=== PATIENT | female | born 1930 | race Caucasian/White ===

== ENCOUNTER 2016-07-18 16:43 | Emergency (ER) | payer MEDICARE ==
[2016-07-18 17:19] VITALS: PULSE 77; TEMP 98.5
[2016-07-18] MEDS ORDERED: MORPHINE SULFATE 4 MG/ML SYRINGE IV STA (17:40)
--- NOTE | 2016-07-18 18:05 | ED ---
General Adult HPI - General Chief complaint: Extremity Injury, Lower Stated complaint: HIP PAIN Time Seen by Provider: 07/18/16 17:31 Source: patient, RN notes reviewed, old records reviewed Mode of arrival: EMS Limitations: physical limitation - History of Present Illness Initial comments: Patient 85-year-old female who presents emergency room today by EMS, the chief complaint of increased right hip pain. She does admit that this is been a chronic problem that has been getting worse. She states that she's been seen in the past for this. She believe she's been to orthopedics. 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 States pain is been getting worse. She states she uses both a cane and walker at times. She states when she tries to bear weight she has increased pain. Patient denies any injury or trauma. Denies any pain at rest. Patient denies any recent fever, chills, shortness of breath, chest pain, abdominal pain, nausea or vomiting, numbness or tingling, dysuria or hematuria, constipation or diarrhea, headaches or visual changes, or any other complaints. - Related Data Home Medications Medication Instructions Recorded Confirmed Calcium Carb-Vit D 500Mg-200Un 1 tab PO BID 08/18/13 07/18/16 [Oscal 500+D] Clopidogrel [Plavix] 75 mg PO DAILY 08/18/13 07/18/16 Lansoprazole [Prevacid] 30 mg PO DAILY 08/18/13 07/18/16 Lovastatin [Mevacor] 20 mg PO DAILY 08/18/13 07/18/16 Fenofibrate Nanocrystallized 145 mg PO DAILY 10/19/13 07/18/16 [Fenofibrate] Montelukast [Singulair] 10 mg PO HS 10/19/13 07/18/16 Sertraline [Zoloft] 100 mg PO BID 06/16/14 07/18/16 Ubidecarenone [Co Q-10] 100 mg PO DAILY 07/30/15 07/18/16 Atenolol [Tenormin] 50 mg PO DAILY 01/30/16 07/18/16 amLODIPine [Norvasc] 5 mg PO DAILY 01/30/16 07/18/16 Hydrocodone/Acetaminophen [Vicodin 1 tab PO Q8H PRN 07/18/16 07/18/16 5-300 mg Tablet] Previous Rx's Medication Instructions Recorded Zolpidem [Ambien] 10 mg PO HS PRN #7 tab 02/12/16 Hydrocodone/Acetaminophen [[place] 1 each PO Q6HR PRN #15 tab 07/18/16 5-325] Allergies Allergy/AdvReac Type Severity Reaction Status Date / Time No Known Allergies Allergy Verified 07/18/16 17:19 Review of Systems ROS Statement: Those systems with pertinent positive or pertinent negative responses have been documented in the HPI. ROS Other: All systems not noted in ROS Statement are negative. Past Medical History Past Medical History: Asthma, COPD, CVA/TIA, GERD/Reflux, Hyperlipidemia, Hypertension Additional Past Medical History / Comment(s): stroke, wound rt lower leg History of Any Multi-Drug Resistant Organisms: MRSA Date of last positivie culture/infection: 10 years ago MDRO Source:: Intestinal Past Surgical History: Hysterectomy Additional Past Surgical History / Comment(s): Bladder suspension 20 years ago, BOWEL SURGERY Past Anesthesia/Blood Transfusion Reactions: No Reported Reaction Past Psychological History: No Psychological Hx Reported Smoking Status: Never smoker Past Alcohol Use History: Occasional Past Drug Use History: None Reported - Past Family History Mother Family Medical History: No Reported History Father History Unknown: Yes Family Medical History: Myocardial Infarction ([place]) General Exam - General Exam Comments Initial Comments: General: The patient is awake and alert, in no distress, and does not appear acutely ill. Eye: Pupils are equal, round and reactive to light, extra-ocular movements are intact. No nystagmus. There is normal conjunctiva bilaterally. No signs of icterus. Ears, nose, mouth and throat: There are moist mucous membranes and no oral lesions. Neck: The neck is supple, there is no tenderness or JVD. Cardiovascular: There is a regular rate and rhythm. No murmur, rub or gallop is appreciated. Respiratory: Lungs are clear to auscultation, respirations are non-labored, breath sounds are equal. No wheezes, stridor, rales, or rhonchi. Musculoskeletal: Normal ROM, no tenderness. Strength 5/5. Sensation intact. Pulses equal bilaterally 2+. Neurological: A&O x 3. CN II-XII intact, There are no obvious motor or sensory deficits. Coordination appears grossly intact. Speech is normal. Skin: Skin is warm and dry and no rashes or lesions are noted. Psychiatric: Cooperative, appropriate mood & affect, normal judgment. Limitations: physical limitation Course Vital Signs 07/18/16 17:00 Temperature 98.5 F Pulse Rate 77 Respiratory 18 Rate Blood Pressure 166/86 O2 Sat by Pulse 94 L Oximetry Medical Decision Making - Medical Decision Making 85-year-old female with chronic right hip pain. No injury or trauma. X-rays reviewed and are unremarkable. Results were discussed with patient. Patient and laboratory here in the emergency room feeling better after pain medication. Does have [place] at home that she can use. Advised follow-up with orthopedics for further evaluation of the pain of the right hip. Advised return to emergency room for any other concerns. Disposition Clinical Impression: Right hip pain Disposition: HOME SELF-CARE Condition: Good Instructions: Hip Pain (ED) Additional Instructions: Please follow up with the orthopedic doctor over the next 2 days. Please continue pain medication of [place] at home for her pain. Please return to emergency room if any symptoms increase worsen or fail concerns. Prescriptions: Hydrocodone/Acetaminophen [[place] 5-325] 1 each PO Q6HR PRN #15 tab PRN Reason: Pain Referrals: Babar Barnard MD [Primary Care Provider] - 1-2 days Hasmukh Weber MD [Medical Doctor] - 1-2 days Time of Disposition: 19:04
--- NOTE | 2016-07-18 18:48 | XR ---
EXAMINATION TYPE: XR Hip RT and AP Pelvis DATE OF EXAM: 07/18/2016 6:28 PM COMPARISON: 02/09/2016 HISTORY: Pain TECHNIQUE: 3 views FINDINGS: Pelvic ring is intact. Proximal right femur and hip joint are intact. There is vascular ritchie cification. I see no fracture. Sacroiliac joints are normal. There is a lumbar levoscoliosis. There i s mild hip joint space narrowing. 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 No fracture seen. No change. Bone island noted in the left iliac bone.
--- NOTE | 2016-07-18 18:49 | XR ---
EXAMINATION TYPE: XR lumbar spine 2 or 3V DATE OF EXAM: 07/18/2016 6:31 PM COMPARISON: 02/03/2016 HISTORY: Back pain TECHNIQUE: 3 views. FINDINGS: there is lumbar levorotoscoliosis. There is degenerative disc space narrowing from L2 to S1 with spu rring and variable vacuum disc phenomenon. There is no compression fracture. Abdominal aorta is ather omatous. Sacroiliac joints appear normal. IMPRESSION: Spondylotic changes. Mild levoscoliosis. No change compared to old exam.
[2016-07-18 19:27] VITALS: BP 156/76; RESP 20
== END 2016-07-18 19:27 | disposition home or self-care (01) ==
LOC: EC 16:43
DX: M25.551 Pain in right hip (principal); G89.29 Other chronic pain; K21.9 Gastro-esophageal reflux disease without esophagitis; E78.5 Hyperlipidemia, unspecified; I10 Essential (primary) hypertension; Z86.73 Personal history of transient ischemic attack (TIA), and cerebral infarction without residual deficits; Z79.02 Long term (current) use of antithrombotics/antiplatelets; Z79.899 Other long term (current) drug therapy
CPT/HCPCS: 72100; 73502; 99284; 96374; J2270

== ENCOUNTER 2016-07-26 01:19 | Emergency (ER) | payer MEDICARE ==
[2016-07-26 01:37] VITALS: TEMP 98.2
[2016-07-26] MEDS ORDERED: SODIUM CHLORIDE 0.9% 1,000 ML IV STA (02:01)
--- NOTE | 2016-07-26 02:07 | ED ---
Fall HPI - General Source: patient, RN notes reviewed Mode of arrival: EMS <Fabienne Gil - Last Filed: 07/26/16 04:18> <Zion Maharaj - Last Filed: 07/26/16 06:07> - General Chief Complaint: Fall Stated Complaint: FALL Time Seen by Provider: 07/26/16 01:37 - History of Present Illness Initial Comments: Patient is a 85-year-old female presents emergency room for evaluation of fall. Patient states she was standing in the kitchen felt very lightheaded and dizzy and fell to the ground. Patient states she fell and hit the back of her head. Patient denies loss of consciousness. Patient also states that she has a cut on her right pointer finger. Patient states she has a headache. Patient denies dizziness or changes in vision. Patient denies neck pain. Patient denies chest pain. Patient denies shortness of breath. Patient denies shoulder pain, arm pain, hip pain, leg pain. Patient denies any other injuries besides head trauma and finger laceration. Patient's caregiver is present with patient. Patient's caregiver states that she heard 2 loud thumps and ran immediately to the kitchen and found patient on the floor. Patient's caregiver states that patient was conscious. Patient's caregiver states that patient has a laceration on her right pointer finger and has a few abrasions on the anterior portion of her neck. Patient's caregiver states that patient did recently take Ambien prior to the fall. Patient's caregiver denies patient having cough, fevers, vomiting. (Fabienne Gil) - Related Data Home Medications Medication Instructions Recorded Confirmed Calcium Carb-Vit D 500Mg-200Un 1 tab PO BID 08/18/13 07/26/16 [Oscal 500+D] Clopidogrel [Plavix] 75 mg PO DAILY 08/18/13 07/26/16 Lansoprazole [Prevacid] 30 mg PO DAILY 08/18/13 07/26/16 Lovastatin [Mevacor] 20 mg PO DAILY 08/18/13 07/26/16 Fenofibrate Nanocrystallized 145 mg PO DAILY 10/19/13 07/26/16 [Fenofibrate] Montelukast [Singulair] 10 mg PO HS 10/19/13 07/26/16 Sertraline [Zoloft] 100 mg PO BID 06/16/14 07/26/16 Ubidecarenone [Co Q-10] 100 mg PO DAILY 07/30/15 07/26/16 Atenolol [Tenormin] 50 mg PO DAILY 01/30/16 07/26/16 amLODIPine [Norvasc] 5 mg PO DAILY 01/30/16 07/26/16 Hydrocodone/Acetaminophen [Vicodin 1 tab PO Q8H PRN 07/18/16 07/26/16 5-300 mg Tablet] ALPRAZolam [Xanax] 0.25 mg PO DAILY PRN 07/26/16 07/26/16 Budesonide [Pulmicort] 0.5 mg INHALATION TID 07/26/16 07/26/16 Diphenoxylate HCl/Atropine 1 tab PO QID PRN 07/26/16 07/26/16 [Lomotil] Formoterol Fumarate [Perforomist] 20 mcg INHALATION TID 07/26/16 07/26/16 Previous Rx's Medication Instructions Recorded Zolpidem [Ambien] 10 mg PO HS PRN #7 tab 02/12/16 Allergies Allergy/AdvReac Type Severity Reaction Status Date / Time No Known Allergies Allergy Verified 07/26/16 01:37 Review of Systems ROS Other: All systems not noted in ROS Statement are negative. <Fabienne Gil - Last Filed: 07/26/16 04:18> ROS Other: All systems not noted in ROS Statement are negative. <Zion Maharaj - Last Filed: 07/26/16 06:07> ROS Statement: Those systems with pertinent positive or pertinent negative responses have been documented in the HPI. Past Medical History Past Medical History: Asthma, COPD, CVA/TIA, GERD/Reflux, Hyperlipidemia, Hypertension Additional Past Medical History / Comment(s): stroke, wound rt lower leg History of Any Multi-Drug Resistant Organisms: MRSA Date of last positivie culture/infection: 10 years ago MDRO Source:: Intestinal Past Surgical History: Hysterectomy Additional Past Surgical History / Comment(s): Bladder suspension 20 years ago, BOWEL SURGERY Past Anesthesia/Blood Transfusion Reactions: No Reported Reaction Past Psychological History: No Psychological Hx Reported Smoking Status: Never smoker Past Alcohol Use History: Occasional Past Drug Use History: None Reported - Past Family History Mother Family Medical History: No Reported History Father History Unknown: Yes Family Medical History: Myocardial Infarction ([place]) <Fabienne Gil - Last Filed: 07/26/16 04:18> General Exam Limitations: no limitations General appearance: alert, in no apparent distress Head exam: Present: atraumatic, normocephalic, normal inspection Eye exam: Present: normal appearance, PERRL, EOMI Pupils: Present: normal accommodation ENT exam: Present: normal exam, mucous membranes moist, TM's normal bilaterally , normal external ear exam Neck exam: Present: full ROM. Absent: normal inspection (Superficial abrasions over anterior neck), tenderness Respiratory exam: Present: normal lung sounds bilaterally. Absent: respiratory distress Cardiovascular Exam: Present: regular rate, normal rhythm, normal heart sounds GI/Abdominal exam: Present: soft, normal bowel sounds. Absent: distended, tenderness, guarding, rebound, rigid Right Hand Wrist exam: Present: full ROM (Full flexion and extension of MCP joint and PIP joint of the second digit), laceration (3 cm V-shaped laceration on the proximal phalanx of the second digit) Neuro motor exam: Present: wrist extension intact, thumb opposition intact, thumb IP flexion intact, thumb adduction intact, fingers 2-5 abduction intact Vascular: Present: normal capillary refill (Capillary refill less than 2 seconds ), radial pulse (2+), ulnar pulse (2+) Back exam: Present: normal inspection Neurological exam: Present: alert, oriented X3, CN II-XII intact, normal gait Psychiatric exam: Present: normal affect, normal mood Skin exam: Present: warm, dry <Fabienne Gil - Last Filed: 07/26/16 04:18> <Zion Maharaj - Last Filed: 07/26/16 06:07> - General Exam Comments Initial Comments: Sitting in exam room, c-collar on, no acute distress. (Fabienne Gil) Procedures - Laceration Laceration #1 Consent Obtained: verbal consent Indication: laceration Site: other (right index finger) Size (cm): 3 Description: irregular Depth: simple, single layer Anesthetic Used: lidocaine 1% Anesthesia Technique: local infiltration Amount (mls): 2 Pre-repair: wound explored Type of Sutures: nylon Size of Sutures: 6-0 Number of Sutures: 9 Technique: simple, interrupted Complications: bleeding Patient Tolerated Procedure: well, no complications <Fabienne Gil - Last Filed: 07/26/16 04:18> Medical Decision Making - Lab Data Result diagrams: 07/26/16 02:40 07/26/16 02:40 - Radiology Data Radiology results: report reviewed, image reviewed <Fabienne Gil - Last Filed: 07/26/16 04:18> - Lab Data Result diagrams: 07/26/16 02:40 07/26/16 02:40 <Zion Maharaj - Last Filed: 07/26/16 06:07> - Medical Decision Making Patient is an 85-year-old female presents to the emergency room for evaluation of fall. Bring/C-spine CT negative for any acute findings. C-collar removed. Right hand x-ray shows no acute findings. Chest x-ray shows no acute findings. Labs still pending. Right index finger laceration repaired with sutures. Case discussed with an passed on to Dr. Maharaj at 4:15 AM. (Fabienne Gil) I saw this patient in conjunction with the physician microbiology lab assistant. I performed independent history and physical exam. Agree with case management. I have reevaluated the patient following her labs. The patient states she is feeling well and would like to go. Did discuss the elevated lactic acid and desire to recheck this following the fluid bolus. Patient is declining this as she feels well and wants go home. The patient does have caregiver and will not be left alone so this seems acceptable as she states she is willing to return if she is feeling worse or if any new symptoms start. (Zion Maharaj) - Lab Data Lab Results 07/26/16 07/26/16 07/26/16 Range/Units 02:40 02:40 02:40 WBC 5.5 (3.8-10.6) k/uL RBC 4.98 (3.80-5.40) m/uL Hgb 15.2 (11.4-16.0) gm/dL Hct 47.2 H (34.0-46.0) % MCV 94.8 (80.0-100.0) fL MCH 30.5 (25.0-35.0) pg MCHC 32.2 (31.0-37.0) g/dL RDW 15.2 (11.5-15.5) % Plt Count 167 (150-450) k/uL Neutrophils % 67 % Lymphocytes % 20 % Monocytes % 8 % Eosinophils % 2 % Basophils % 0 % Neutrophils # 3.7 (1.3-7.7) k/uL Lymphocytes # 1.1 (1.0-4.8) k/uL Monocytes # 0.4 (0-1.0) k/uL Eosinophils # 0.1 (0-0.7) k/uL Basophils # 0.0 (0-0.2) k/uL PT (9.0-12.0) sec INR (<1.1) Sodium 140 (137-145) mmol/L Potassium 4.0 (3.5-5.1) mmol/L Chloride 103 (98-107) mmol/L Carbon Dioxide 19 L (22-30) mmol/L Anion Gap 18 mmol/L BUN 9 (7-17) mg/dL Creatinine 0.60 (0.52-1.04) mg/dL Est GFR (MDRD) Af Amer >60 (>60 ml/min/1.73 sqM) Est GFR (MDRD) Non-Af >60 (>60 ml/min/1.73 sqM) Glucose 97 (74-99) mg/dL Plasma Lactic Acid Papa 2.6 H* (0.7-2.0) mmol/L Calcium 9.1 (8.4-10.2) mg/dL Total Bilirubin 0.5 (0.2-1.3) mg/dL AST 26 (14-36) U/L ALT 16 (9-52) U/L Alkaline Phosphatase 86 (38-126) U/L Total Creatine Kinase (30-135) U/L CK-MB (CK-2) (0.0-2.4) ng/mL CK-MB (CK-2) Rel Index Troponin I (0.000-0.034) ng/mL Total Protein 6.2 L (6.3-8.2) g/dL Albumin 3.7 (3.5-5.0) g/dL Urine Color Urine Appearance (Clear) Urine pH (5.0-8.0) Ur Specific [place] (1.001-1.035) Urine Protein (Negative) Urine Glucose (UA) (Negative) Urine Ketones (Negative) Urine Blood (Negative) Urine Nitrite (Negative) Urine Bilirubin (Negative) Urine Urobilinogen (<2.0) mg/dL Ur Leukocyte Esterase (Negative) 07/26/16 07/26/16 07/26/16 Range/Units 02:40 02:40 05:03 WBC (3.8-10.6) k/uL RBC (3.80-5.40) m/uL Hgb (11.4-16.0) gm/dL Hct (34.0-46.0) % MCV (80.0-100.0) fL MCH (25.0-35.0) pg MCHC (31.0-37.0) g/dL RDW (11.5-15.5) % Plt Count (150-450) k/uL Neutrophils % % Lymphocytes % % Monocytes % % Eosinophils % % Basophils % % Neutrophils # (1.3-7.7) k/uL Lymphocytes # (1.0-4.8) k/uL Monocytes # (0-1.0) k/uL Eosinophils # (0-0.7) k/uL Basophils # (0-0.2) k/uL PT 10.7 (9.0-12.0) sec INR 1.1 (<1.1) Sodium (137-145) mmol/L Potassium (3.5-5.1) mmol/L Chloride (98-107) mmol/L Carbon Dioxide (22-30) mmol/L Anion Gap mmol/L BUN (7-17) mg/dL Creatinine (0.52-1.04) mg/dL Est GFR (MDRD) Af Amer (>60 ml/min/1.73 sqM) Est GFR (MDRD) Non-Af (>60 ml/min/1.73 sqM) Glucose (74-99) mg/dL Plasma Lactic Acid Papa (0.7-2.0) mmol/L Calcium (8.4-10.2) mg/dL Total Bilirubin (0.2-1.3) mg/dL AST (14-36) U/L ALT (9-52) U/L Alkaline Phosphatase (38-126) U/L Total Creatine Kinase 82 (30-135) U/L CK-MB (CK-2) 2.0 (0.0-2.4) ng/mL CK-MB (CK-2) Rel Index 2.4 Troponin I 0.017 (0.000-0.034) ng/mL Total Protein (6.3-8.2) g/dL Albumin (3.5-5.0) g/dL Urine Color Yellow Urine Appearance Clear (Clear) Urine pH 5.5 (5.0-8.0) Ur Specific [place] 1.015 (1.001-1.035) Urine Protein Negative (Negative) Urine Glucose (UA) Negative (Negative) Urine Ketones Negative (Negative) Urine Blood Negative (Negative) Urine Nitrite Negative (Negative) Urine Bilirubin Negative (Negative) Urine Urobilinogen <2.0 (<2.0) mg/dL Ur Leukocyte Esterase Negative (Negative) 07/26/16 02:49 Sinus rhythm with PACs, ventricular rate 97 bpm, SC interval 182 ms, QRS duration 122 ms, QT/QTC 390/495 ms (Fabienne Gil) Disposition <Fabienne Gil - Last Filed: 07/26/16 04:18> <Zion Maharaj - Last Filed: 07/26/16 06:07> Clinical Impression: Syncope, Fall, Finger laceration Disposition: HOME SELF-CARE Condition: Fair Instructions: Fall Prevention for Older Adults (ED), Finger Laceration (ED) Referrals: Babar Barnard MD [Primary Care Provider] - 1-2 days
[2016-07-26] MEDS ORDERED: ACETAMINOPHEN IV (For NPO) 1,000 MG in EMPTY BAG 1 BAG IVPB STA (02:19)
--- NOTE | 2016-07-26 03:13 | XR ---
EXAM: XR Chest, 2 Views. CLINICAL HISTORY: pain TECHNIQUE: Frontal and lateral views of the chest. COMPARISON: Chest x-ray dated 02/09/2016 FINDINGS: Lungs: The lungs are clear. Pleural space: Unremarkable. No pneumothorax. Heart: Stable enlargement of the cardiomediastinal silhouette. Mediastinum: See above. Bones/joints: Degenerative changes of the osseous structures. IMPRESSION: No acute findings.
[2016-07-26 03:14] LABS: Basophils % (A) 0 %; CH 29.9; CHCM 31.7; Eosinophils # (A) 0.1 k/uL (0-0.7); Eosinophils % (A) 2 %; HCT 47.2 % (34.0-46.0); HDW 2.41; HGB 15.2 gm/dL (11.4-16.0); Luc # (Auto) 0.14; Luc % (Auto) 3; Lymphocytes # (A) 1.1 k/uL (1.0-4.8); Lymphocytes % (A) 20 %; MCH 30.5 pg (25.0-35.0); MCHC 32.2 g/dL (31.0-37.0); MCV 94.8 fL (80.0-100.0); Mean Platelet Volume 7.4; Monocytes # (A) 0.4 k/uL (0-1.0); Monocytes % (A) 8 %; Neutrophils # (A) 3.7 k/uL (1.3-7.7); Neutrophils % (A) 67 %; RBC 4.98 m/uL (3.80-5.40); RDW 15.2 % (11.5-15.5); WBC 5.5 k/uL (3.8-10.6); WBC (Perox) 5.29
[2016-07-26 03:26] LABS: ALT 16 U/L (9-52); AST 26 U/L (14-36); Alkaline Phosphatase 86 U/L (38-126); Anion Gap 18 mmol/L; Blood Urea Nitrogen 9 mg/dL (7-17); Calcium 9.1 mg/dL (8.4-10.2); Carbon Dioxide 19 mmol/L (22-30); Chloride 103 mmol/L (98-107); Glucose 97 mg/dL (74-99); Non-African American GFR(MDRD) >60 (>60 ml/min/1.73 sqM); Sodium 140 mmol/L (137-145); Total Bilirubin 0.5 mg/dL (0.2-1.3); Total Protein 6.2 g/dL (6.3-8.2)
--- NOTE | 2016-07-26 03:28 | CT ---
EXAM: CT Head Without Intravenous Contrast. CLINICAL HISTORY: Reason: Pain TECHNIQUE: Axial computed tomography images of the head/brain without intravenous contrast. CTDI is 57.4 mGy and DLP is 909.4 mGy-cm This CT exam was performed using one or more of the following dose reduction techniques: automated exposure control, adjustment of the mA and/or kV according to patient size, and/or use of iterative reconstruction technique. COMPARISON: Head CT dated 10/19/2013 FINDINGS: Brain: No evidence of acute infarct, hemorrhage, mass or edema. Chronic small vessel ischemic disease and senescent changes. 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 Ventricles: Unremarkable. No ventriculomegaly. Bones/joints: Unremarkable. No acute fracture. Soft tissues: Unremarkable. Sinuses: Minimal mucosal thickening in the paranasal sinuses. Mastoid air cells: Partial opacification of the mastoid air cells. IMPRESSION: No evidence of acute infarct, hemorrhage, mass or edema. EXAM: CT Cervical Spine Without Intravenous Contrast. CLINICAL HISTORY: Reason: Pain TECHNIQUE: Axial computed tomography images of the cervical spine without intravenous contrast. CTDI is 16.5 mGy and DLP is 283.6 mGy-cm This CT exam was performed using one or more of the following dose reduction techniques: automated exposure control, adjustment of the mA and/or kV according to patient size, and/or use of iterative reconstruction technique. COMPARISON: CT C-spine dated 10/19/2013 FINDINGS: Vertebrae: Grade 1 degenerative anterolisthesis of C3 on C4. Grade 1 degenerative retrolisthesis of C5 on C6. No acute fracture. Discs/spinal canal/neural foramina: Multilevel degenerative changes. No spinal canal stenosis. Soft tissues: Unremarkable. Vasculature: Calcifications of the carotid arteries. Thyroid: Calcifications noted within both thyroid glands. Lung apices: The lung apices demonstrate biapical pleural-parenchymal scarring. IMPRESSION: No acute findings.
[2016-07-26] MEDS ORDERED: SODIUM CHLORIDE 0.9% 1,000 ML IV ONE (03:29)
[2016-07-26 03:30] LABS: INR 1.1 (<1.1); Prothrombin Time 10.7 sec (9.0-12.0)
--- NOTE | 2016-07-26 03:55 | XR ---
EXAM: XR Right Hand Complete, 3 or More Views. CLINICAL HISTORY: Reason: Pain TECHNIQUE: Frontal, lateral and oblique views of the right hand. COMPARISON: No relevant prior studies available. FINDINGS: Bones/joints: No evidence of acute fracture or traumatic malalignment. Marked degenerative changes of the first CMC joint and mild degenerative changes of the PIP and DIP joints of the second through fifth digits. Moderate osteopenia. Soft tissues: Unremarkable. No radiopaque foreign body. Vasculature: Vascular calcifications. IMPRESSION: 1. No evidence of acute fracture or traumatic malalignment. 2. Marked degenerative changes of the first CMC joint and mild degenerative changes of the PIP and DIP joints of the second through fifth digits.
[2016-07-26 04:06] LABS: Troponin I 0.017 ng/mL (0.000-0.034)
[2016-07-26 05:19] LABS: Appearance,Urine Clear (Clear); Bilirubin,Urine Negative (Negative); Glucose,Urine (UA) Negative (Negative); Ketones,Urine Negative (Negative); Leukocyte Esterase,Urine Negative (Negative); Nitrite,Urine Negative (Negative); PH, Urine 5.5 (5.0-8.0); Protein,Urine Negative (Negative); Specific Gravity,Urine 1.015 (1.001-1.035); UA Billing (MACRO vs. MICRO) CHEM; Urobilinogen,Urine <2.0 mg/dL (<2.0)
[2016-07-26 05:42] VITALS: BP 148/63; PULSE 94; RESP 18
== END 2016-07-26 06:39 | disposition home or self-care (01) ==
LOC: EC 01:19
DX: S61.210A Laceration without foreign body of right index finger without damage to nail, initial encounter (principal); R55 Syncope and collapse; J45.909 Unspecified asthma, uncomplicated; J44.9 Chronic obstructive pulmonary disease, unspecified; E78.5 Hyperlipidemia, unspecified; I10 Essential (primary) hypertension; Z86.73 Personal history of transient ischemic attack (TIA), and cerebral infarction without residual deficits; Z86.14 Personal history of Methicillin resistant Staphylococcus aureus infection; Z79.01 Long term (current) use of anticoagulants; Z79.51 Long term (current) use of inhaled steroids; Z79.899 Other long term (current) drug therapy; W01.10XA Fall on same level from slipping, tripping and stumbling with subsequent striking against unspecified object, initial encounter; Y92.000 Kitchen of unspecified non-institutional (private) residence as the place of occurrence of the external cause; Y93.89 Activity, other specified
CPT/HCPCS: 99284 ×2; 12002 ×2; 96365 ×2; 96361 ×4; 36415; 93005; 80053; 82550; 82553; 83605; 84484; 85025; 85610; 81003; 71020; 73130; 72125; 70450; J0131

== ENCOUNTER 2017-04-27 19:03 | Emergency (ER) | payer MEDICARE ==
[2017-04-27] MEDS ORDERED: SODIUM CHLORIDE 0.9% 1,000 ML IV STA ×2 (19:05→20:23)
[2017-04-27] MEDS ORDERED: SODIUM CHLORIDE 0.9% 500 ML IV STA ×2 (19:05→20:23)
--- NOTE | 2017-04-27 19:20 | ED ---
General Adult HPI - General Chief complaint: Neuro Symptoms/Deficit Stated complaint: Weakness Time Seen by Provider: 04/27/17 19:05 Source: patient, EMS, RN notes reviewed, old records reviewed Mode of arrival: EMS Limitations: no limitations - History of Present Illness Initial comments: This is an 86-year-old female to the ER for evaluation of generalized weakness, fatigue, weakness and lethargy. Patient sent in from ER for evaluation. Patient also complains of right-sided weakness patient has history of asthma hypertension and high cholesterol CVAs TIAs. Patient denies any other neurological deficit no headache - Related Data Home Medications Medication Instructions Recorded Confirmed Clopidogrel [Plavix] 75 mg PO DAILY 08/18/13 04/27/17 Lansoprazole [Prevacid] 30 mg PO DAILY 08/18/13 04/27/17 Lovastatin [Mevacor] 20 mg PO HS 08/18/13 04/27/17 Fenofibrate Nanocrystallized 145 mg PO DAILY 10/19/13 04/27/17 [Fenofibrate] Sertraline [Zoloft] 100 mg PO BID 06/16/14 04/27/17 amLODIPine [Norvasc] 5 mg PO DAILY 01/30/16 04/27/17 Atenolol [Tenormin] 50 mg PO DAILY 03/16/17 04/27/17 Promethazine [Phenergan] 50 mg PO DAILY PRN 03/17/17 04/27/17 Gabapentin 600 mg PO BID 04/27/17 04/27/17 Ipratropium-Albuterol Nebulize 3 ml INHALATION RT-QID PRN 04/27/17 04/27/17 [Duoneb 0.5 mg-3 mg/3 ml Soln] oxyCODONE-APAP 10-325MG [Percocet 1 tab PO Q6H PRN 04/27/17 04/27/17 10-325 mg] Previous Rx's Medication Instructions Recorded Nitrofurantoin Monohyd/M-Cryst 100 mg PO Q12HR #10 cap 04/27/17 [Macrobid] Allergies Allergy/AdvReac Type Severity Reaction Status Date / Time No Known Allergies Allergy Verified 04/27/17 19:53 Review of Systems ROS Statement: Those systems with pertinent positive or pertinent negative responses have been documented in the HPI. ROS Other: All systems not noted in ROS Statement are negative. Past Medical History Past Medical History: Asthma, COPD, CVA/TIA, GERD/Reflux, Hyperlipidemia, Hypertension Additional Past Medical History / Comment(s): stroke 2006, wound rt lower leg, chronic pancreatitis. small bowel obstruction 2013 History of Any Multi-Drug Resistant Organisms: MRSA Date of last positivie culture/infection: 10 years ago MDRO Source:: Intestinal Past Surgical History: Hysterectomy Additional Past Surgical History / Comment(s): Bladder suspension 20 years ago, BOWEL SURGERY Past Anesthesia/Blood Transfusion Reactions: No Reported Reaction Past Psychological History: No Psychological Hx Reported Smoking Status: Former smoker Past Alcohol Use History: Daily Past Drug Use History: None Reported - Past Family History Mother Family Medical History: No Reported History Father History Unknown: Yes Family Medical History: Myocardial Infarction ([place]) General Exam Limitations: no limitations General appearance: alert, in no apparent distress Head exam: Present: atraumatic, normocephalic, normal inspection Eye exam: Present: normal appearance, PERRL, EOMI. Absent: scleral icterus, conjunctival injection, periorbital swelling ENT exam: Present: normal exam, mucous membranes moist Neck exam: Present: normal inspection. Absent: tenderness, meningismus, lymphadenopathy Respiratory exam: Present: normal lung sounds bilaterally. Absent: respiratory distress, wheezes, rales, rhonchi, stridor Cardiovascular Exam: Present: regular rate, normal rhythm, normal heart sounds. Absent: systolic murmur, diastolic murmur, rubs, gallop, clicks GI/Abdominal exam: Present: soft, normal bowel sounds. Absent: distended, tenderness, guarding, rebound, rigid Extremities exam: Present: normal inspection, full ROM, normal capillary refill. Absent: tenderness, pedal edema, joint swelling, calf tenderness Back exam: Present: normal inspection Neurological exam: Present: alert, oriented X3, CN II-XII intact Psychiatric exam: Present: normal affect, normal mood Skin exam: Present: warm, dry, intact, normal color. Absent: rash Course Vital Signs 04/27/17 04/27/17 04/27/17 19:04 20:12 21:04 Temperature 98.4 F Pulse Rate 60 78 81 Respiratory 16 16 16 Rate Blood Pressure 146/68 168/72 176/80 O2 Sat by Pulse 99 95 97 Oximetry 04/27/17 22:08 Temperature Pulse Rate 63 Respiratory 16 Rate Blood Pressure 169/74 O2 Sat by Pulse 98 Oximetry - Reevaluation(s) Reevaluation #1: 04/27/17 21:25 Patient feeling better with adequate hydration at this time Reevaluation #2: 04/27/17 23:10 Spoke with patient's family doctor Dr. Barnard, he will see patient in an outpatient basis, EKG Findings - EKG Comments: EKG Findings:: EKG shows normal sinus rhythm rate of 62, MO 164, QRS 122, QTc 493 Medical Decision Making - Medical Decision Making 86 female the ER for weakness, right-sided weakness, generalized weakness not feeling well. Patient was dehydrated currently feeling better. CT is negative positive urinary tract infection - Lab Data Result diagrams: 04/27/17 19:17 04/27/17 19:17 Lab Results 04/27/17 04/27/17 04/27/17 Range/Units 19:17 19:17 19:17 WBC 4.7 (3.8-10.6) k/uL RBC 4.97 (3.80-5.40) m/uL Hgb 14.5 (11.4-16.0) gm/dL Hct 46.7 H (34.0-46.0) % MCV 94.1 D (80.0-100.0) fL MCH 29.2 (25.0-35.0) pg MCHC 31.0 (31.0-37.0) g/dL RDW 15.0 (11.5-15.5) % Plt Count 267 (150-450) k/uL Neutrophils % 51 % Lymphocytes % 31 % Monocytes % 7 % Eosinophils % 8 % Basophils % 1 % Neutrophils # 2.4 (1.3-7.7) k/uL Lymphocytes # 1.5 (1.0-4.8) k/uL Monocytes # 0.3 (0-1.0) k/uL Eosinophils # 0.4 (0-0.7) k/uL Basophils # 0.0 (0-0.2) k/uL Hypochromasia Slight PT (9.0-12.0) sec INR (<1.2) APTT (22.0-30.0) sec Sodium 140 (137-145) mmol/L Potassium 4.5 (3.5-5.1) mmol/L Chloride 102 (98-107) mmol/L Carbon Dioxide 31 H (22-30) mmol/L Anion Gap 7 mmol/L BUN 16 (7-17) mg/dL Creatinine 0.96 (0.52-1.04) mg/dL Est GFR (MDRD) Af Amer >60 (>60 ml/min/1.73 sqM) Est GFR (MDRD) Non-Af 55 (>60 ml/min/1.73 sqM) Glucose 90 (74-99) mg/dL Calcium 9.0 (8.4-10.2) mg/dL Phosphorus 3.4 (2.5-4.5) mg/dL Magnesium 1.6 (1.6-2.3) mg/dL Total Bilirubin 0.4 (0.2-1.3) mg/dL AST 30 (14-36) U/L ALT 33 (9-52) U/L Alkaline Phosphatase 82 (38-126) U/L Total Creatine Kinase 22 L (30-135) U/L CK-MB (CK-2) 0.5 (0.0-2.4) ng/mL CK-MB (CK-2) Rel Index 2.3 Troponin I <0.012 (0.000-0.034) ng/mL Total Protein 5.7 L (6.3-8.2) g/dL Albumin 3.5 (3.5-5.0) g/dL Lipase (23-300) U/L Urine Color Urine Appearance (Clear) Urine pH (5.0-8.0) Ur Specific [place] (1.001-1.035) Urine Protein (Negative) Urine Glucose (UA) (Negative) Urine Ketones (Negative) Urine Blood (Negative) Urine Nitrite (Negative) Urine Bilirubin (Negative) Urine Urobilinogen (<2.0) mg/dL Ur Leukocyte Esterase (Negative) Urine RBC (0-5) /hpf Urine WBC (0-5) /hpf Ur Squamous Epith Cells (0-4) /hpf Urine Bacteria (None) /hpf Hyaline Casts (0-2) /lpf Urine Mucus (None) /hpf Serum Alcohol mg/dL 04/27/17 04/27/17 04/27/17 Range/Units 19:17 21:01 22:05 WBC (3.8-10.6) k/uL RBC (3.80-5.40) m/uL Hgb (11.4-16.0) gm/dL Hct (34.0-46.0) % MCV (80.0-100.0) fL MCH (25.0-35.0) pg MCHC (31.0-37.0) g/dL RDW (11.5-15.5) % Plt Count (150-450) k/uL Neutrophils % % Lymphocytes % % Monocytes % % Eosinophils % % Basophils % % Neutrophils # (1.3-7.7) k/uL Lymphocytes # (1.0-4.8) k/uL Monocytes # (0-1.0) k/uL Eosinophils # (0-0.7) k/uL Basophils # (0-0.2) k/uL Hypochromasia PT 10.5 (9.0-12.0) sec INR 1.1 (<1.2) APTT 21.4 L (22.0-30.0) sec Sodium (137-145) mmol/L Potassium (3.5-5.1) mmol/L Chloride (98-107) mmol/L Carbon Dioxide (22-30) mmol/L Anion Gap mmol/L BUN (7-17) mg/dL Creatinine (0.52-1.04) mg/dL Est GFR (MDRD) Af Amer (>60 ml/min/1.73 sqM) Est GFR (MDRD) Non-Af (>60 ml/min/1.73 sqM) Glucose (74-99) mg/dL Calcium (8.4-10.2) mg/dL Phosphorus (2.5-4.5) mg/dL Magnesium (1.6-2.3) mg/dL Total Bilirubin (0.2-1.3) mg/dL AST (14-36) U/L ALT (9-52) U/L Alkaline Phosphatase (38-126) U/L Total Creatine Kinase (30-135) U/L CK-MB (CK-2) (0.0-2.4) ng/mL CK-MB (CK-2) Rel Index Troponin I (0.000-0.034) ng/mL Total Protein (6.3-8.2) g/dL Albumin (3.5-5.0) g/dL Lipase 527 H (23-300) U/L Urine Color Yellow Urine Appearance Clear (Clear) Urine pH 7.5 (5.0-8.0) Ur Specific [place] 1.012 (1.001-1.035) Urine Protein Negative (Negative) Urine Glucose (UA) Negative (Negative) Urine Ketones Negative (Negative) Urine Blood Negative (Negative) Urine Nitrite Positive H (Negative) Urine Bilirubin Negative (Negative) Urine Urobilinogen <2.0 (<2.0) mg/dL Ur Leukocyte Esterase Large H (Negative) Urine RBC <1 (0-5) /hpf Urine WBC 33 H (0-5) /hpf Ur Squamous Epith Cells 3 (0-4) /hpf Urine Bacteria Many H (None) /hpf Hyaline Casts 3 H (0-2) /lpf Urine Mucus Rare H (None) /hpf Serum Alcohol <10 mg/dL - Radiology Data Radiology results: report reviewed (Chest x-ray negative CT brain is negative), image reviewed Disposition Clinical Impression: Transient cerebral ischemia, Dehydration, UTI (urinary tract infection), Weakness Disposition: HOME SELF-CARE Condition: Good Instructions: Urinary Tract Infection in Women (ED) Prescriptions: Nitrofurantoin Monohyd/M-Cryst [Macrobid] 100 mg PO Q12HR #10 cap Referrals: Babar Barnard MD [Primary Care Provider] - 1-2 days
[2017-04-27 19:34] LABS: Basophils % (A) 1 %; Eosinophils # (A) 0.4 k/uL (0-0.7); Eosinophils % (A) 8 %; HCT 46.7 % (34.0-46.0); HGB 14.5 gm/dL (11.4-16.0); Hypochromasia Slight; Lymphocytes # (A) 1.5 k/uL (1.0-4.8); Lymphocytes % (A) 31 %; MCH 29.2 pg (25.0-35.0); Monocytes # (A) 0.3 k/uL (0-1.0); Monocytes % (A) 7 %; Neutrophils # (A) 2.4 k/uL (1.3-7.7); Neutrophils % (A) 51 %; Platelet Count 267 k/uL (150-450); RBC 4.97 m/uL (3.80-5.40); WBC 4.7 k/uL (3.8-10.6)
--- NOTE | 2017-04-27 19:39 | XR ---
EXAMINATION: XR chest 2V DATE AND TIME: 04/27/2017 7:29 PM ORDERING PROVIDER: Hayes Amaya DO CLINICAL INDICATION: Weakness with right-sided weakness and slurred speech. TECHNIQUE: PA and lateral COMPARISON: 03/26/2017 DESCRIPTION: The lungs are clear. The pleural spaces are negative. The cardiac silhouette is moderate-marked enlarged, similar to the prior study. The skeletal structures are intact without focal findings. The soft tissues are unremarkable. IMPRESSION: NO ACUTE PROCESS.
[2017-04-27 19:43] LABS: MCV 94.1 fL (80.0-100.0)
[2017-04-27 19:44] LABS: INR 1.1 (<1.2); Prothrombin Time 10.5 sec (9.0-12.0)
[2017-04-27 19:45] LABS: ALT 33 U/L (9-52); AST 30 U/L (14-36); Albumin 3.5 g/dL (3.5-5.0); Alkaline Phosphatase 82 U/L (38-126); Anion Gap 7 mmol/L; Blood Urea Nitrogen 16 mg/dL (7-17); Carbon Dioxide 31 mmol/L (22-30); Chloride 102 mmol/L (98-107); Glucose 90 mg/dL (74-99); Magnesium 1.6 mg/dL (1.6-2.3); Phosphorus 3.4 mg/dL (2.5-4.5); Potassium 4.5 mmol/L (3.5-5.1); Sodium 140 mmol/L (137-145); Total Bilirubin 0.4 mg/dL (0.2-1.3); Total Protein 5.7 g/dL (6.3-8.2)
[2017-04-27 20:03] LABS: Creatine Kinase 22 U/L (30-135)
[2017-04-27 20:05] LABS: Partial Thromboplastin Time 21.4 sec (22.0-30.0)
[2017-04-27 20:15] LABS: Creatine Kinase MB 0.5 ng/mL (0.0-2.4); Troponin I <0.012 ng/mL (0.000-0.034)
--- NOTE | 2017-04-27 20:26 | CT ---
EXAMINATION: CT brain wo con DATE AND TIME: 04/27/2017 7:50 PM ORDERING PROVIDER: Hayes Amaya DO CLINICAL INDICATION: pain TECHNIQUE: Standard departmental protocol. COMPARISON: None. DESCRIPTION: The calvarium is intact. There is no intracranial hemorrhage. There is no mass or mass e ffect. There is no definite new attenuation defect. There is focal encephalomalacia in the left anter ior crockett radiata, consistent with remote infarction. Remainder of the intra-axial and extra-axial compartment examination is unremarkable. The paranasal sinuses, middle ear cavities, and mastoid sinus air cells are clear. The orbits are intact. IMPRESSION: NO ACUTE PROCESS.
[2017-04-27 21:16] LABS: Appearance,Urine Clear (Clear); Bacteria,Urine Many /hpf; Bilirubin,Urine Negative (Negative); Blood,Urine Negative (Negative); Color,Urine Yellow; Glucose,Urine (UA) Negative (Negative); Hyaline Casts,Urine 3 /lpf (0-2); Ketones,Urine Negative (Negative); Leukocyte Esterase,Urine Large (Negative); Mucus,Urine Rare /hpf; Nitrite,Urine Positive (Negative); PH, Urine 7.5 (5.0-8.0); Protein,Urine Negative (Negative); RBC,Urine <1 /hpf (0-5); Specific Gravity,Urine 1.012 (1.001-1.035); Squamous Epithelial Cell,Urine 3 /hpf (0-4); Urobilinogen,Urine <2.0 mg/dL (<2.0); WBC,Urine 33 /hpf (0-5)
[2017-04-27] MEDS ORDERED: cefTRIAXone IN SWFI 1,000 MG/10 ML SYRINGE IVP STA (21:25)
[2017-04-27 22:10] VITALS: RESP 16
[2017-04-27 22:27] LABS: Alcohol <10 mg/dL; Lipase 527 U/L (23-300)
[2017-04-28 00:42] VITALS: BP 157/68; PULSE 68; TEMP 98.8
== END 2017-04-28 01:22 | disposition home or self-care (01) ==
LOC: EC 19:03
DX: G45.9 Transient cerebral ischemic attack, unspecified (principal); E86.0 Dehydration; N39.0 Urinary tract infection, site not specified; E78.00 Pure hypercholesterolemia, unspecified; I10 Essential (primary) hypertension; K21.9 Gastro-esophageal reflux disease without esophagitis; Z87.891 Personal history of nicotine dependence; Z79.02 Long term (current) use of antithrombotics/antiplatelets; Z79.899 Other long term (current) drug therapy; Z86.14 Personal history of Methicillin resistant Staphylococcus aureus infection
CPT/HCPCS: 99285; 96374; 96361; 36415; 93005; 80053; 82550; 82553; 83690; 83735; 84100; 84484; 85025; 85610; 85730; 81001; 80320; 87086; 71046; 70450; J0696